=== PATIENT | female | born 1990 | race Caucasian/White ===

== ENCOUNTER → 2024-09-08 08:32 | Outpatient (REF) | payer OTHER, SELFPAY | LOC: PNTC 08:32 | PROVIDERS: ATTENDING PHYSICIAN Obstetrics & Gynecology | DX: Z36.82 Encounter for antenatal screening for nuchal translucency (principal); Z36.0 Encounter for antenatal screening for chromosomal anomalies | CPT/HCPCS: 76801; 76813 ==

== ENCOUNTER → 2024-10-06 08:14 | Outpatient (REF) | payer OTHER, SELFPAY | LOC: PNTC 08:14 | PROVIDERS: ATTENDING PHYSICIAN Student in an Organized Health Care Education/Training Program | DX: O09.812 Supervision of pregnancy resulting from assisted reproductive technology, second trimester (principal); O99.212 Obesity complicating pregnancy, second trimester; O10.012 Pre-existing essential hypertension complicating pregnancy, second trimester; O34.12 Maternal care for benign tumor of corpus uteri, second trimester | CPT/HCPCS: 76805 ==

== ENCOUNTER → 2024-10-31 06:56 | Outpatient (REF) | payer OTHER, SELFPAY | LOC: PNTC 06:56 | PROVIDERS: ATTENDING PHYSICIAN Obstetrics & Gynecology | DX: O09.812 Supervision of pregnancy resulting from assisted reproductive technology, second trimester (principal); O99.212 Obesity complicating pregnancy, second trimester; O10.012 Pre-existing essential hypertension complicating pregnancy, second trimester; O34.12 Maternal care for benign tumor of corpus uteri, second trimester | CPT/HCPCS: 76811; 76817 ==

== ENCOUNTER → 2024-11-24 13:22 | Outpatient (REF) | payer OTHER, SELFPAY | LOC: PNTC 13:22 | PROVIDERS: ATTENDING PHYSICIAN Obstetrics & Gynecology | DX: O99.210 Obesity complicating pregnancy, unspecified trimester (principal) | CPT/HCPCS: 76816 ==

== ENCOUNTER → 2024-12-12 07:22 | Outpatient (REF) | payer OTHER, SELFPAY | LOC: PNTC 07:22 | PROVIDERS: ATTENDING PHYSICIAN Obstetrics & Gynecology | DX: O99.210 Obesity complicating pregnancy, unspecified trimester (principal); O99.340 Other mental disorders complicating pregnancy, unspecified trimester | CPT/HCPCS: 76816 ==

== ENCOUNTER 2025-01-05 14:05 | Observation (INO) | payer OTHER, SELFPAY ==
[2025-01-05 14:25] LABS: Hematocrit 42.2 % (37.0-47.0); Hemoglobin 14.3 g/dL (12.0-16.0); Mean Corp Hgb Conc. 33.9 g/dL (33.0-37.0); Mean Corpuscular Volume 87.6 fL (81.0-99.0); Nucleated Red Blood Cells % 0 %; Platelet Count 388 10^3/uL (130-400); Red Cell Dist. Width 12.8 % (11.5-14.5)
[2025-01-05 14:26] LABS: Urine Character Clear (Clear)
[2025-01-05 14:40] LABS: ALT (SGPT) 15 U/L (0-35); AST (SGOT) 20 U/L (14-36); Albumin 4.3 g/dl (3.5-5.0); Alkaline Phosphatase 78 U/L (38-126); Blood Urea Nitrogen 9 mg/dl (7-17); Calcium 9.6 mg/dl (8.4-10.2); Carbon Dioxide 26 mmol/L (22-30); Chloride 103 mmol/L (98-107); Glucose 95 mg/dl (70-99); Potassium 4.6 mmol/L (3.5-5.1); Sodium 133 mmol/L (135-145); Total Protein 7.4 g/dl (6.3-8.2); eGFR > 60.00
[2025-01-05 14:43] VITALS: BP 135/89; BMI 31.3
== END 2025-01-05 16:21 | disposition home or self-care (01) ==
LOC: PNTC-IN 14:05
PROVIDERS: ADMITTING PHYSICIAN Obstetrics & Gynecology
DX: O10.013 Pre-existing essential hypertension complicating pregnancy, third trimester (principal); Z3A.29 29 weeks gestation of pregnancy
CPT/HCPCS: 36415; 76815; 80053; 81003; 82570; 84156; 85025; G0378

== ENCOUNTER → 2025-01-12 08:34 | Outpatient (REF) | payer OTHER, SELFPAY | LOC: PNTC 08:34 | PROVIDERS: ATTENDING PHYSICIAN Obstetrics & Gynecology | DX: O99.210 Obesity complicating pregnancy, unspecified trimester (principal) | CPT/HCPCS: 59025; 76816 ==

== ENCOUNTER 2025-01-13 16:59 | Observation (INO) | payer OTHER, SELFPAY ==
[2025-01-13 17:24] VITALS: BP 151/98; BMI 31.8
[2025-01-13 17:31] LABS: Hematocrit 36.6 % (37.0-47.0); Hemoglobin 12.8 g/dL (12.0-16.0); Mean Corp Hgb Conc. 35.0 g/dL (33.0-37.0); Mean Corpuscular Volume 85.7 fL (81.0-99.0); Nucleated Red Blood Cells % 0 %; Platelet Count 396 10^3/uL (130-400); Red Cell Dist. Width 12.9 % (11.5-14.5)
[2025-01-13 18:01] LABS: Urine Character Clear (Clear)
[2025-01-13 18:06] LABS: ALT (SGPT) 14 U/L (0-35); AST (SGOT) 22 U/L (14-36); Albumin 3.9 g/dl (3.5-5.0); Alkaline Phosphatase 77 U/L (38-126); Blood Urea Nitrogen 9 mg/dl (7-17); Calcium 10.0 mg/dl (8.4-10.2); Carbon Dioxide 21 mmol/L (22-30); Chloride 105 mmol/L (98-107); Estimated Creatinine Clearance > 125 ml/min; Glucose 87 mg/dl (70-99); Potassium 4.3 mmol/L (3.5-5.1); Sodium 132 mmol/L (135-145); Total Protein 7.2 g/dl (6.3-8.2); eGFR > 60.00
[2025-01-13] MEDS: LR 1000 IV (19:01)
[2025-01-14] MEDS: PROCARDIA XL (EXTENDED RELEASE) 60 MG PO (07:27)
[2025-01-14] MEDS: LOW STRENGTH ASPIRIN 81 MG PO (07:27)
[2025-01-14] MEDS: PRENATAL PLUS 1 TABLET PO (07:27)
[2025-01-14 09:24] LABS: Hematocrit 35.5 % (37.0-47.0); Hemoglobin 12.2 g/dL (12.0-16.0); Mean Corp Hgb Conc. 34.4 g/dL (33.0-37.0); Mean Corpuscular Volume 87.0 fL (81.0-99.0); Platelet Count 334 10^3/uL (130-400); Red Cell Dist. Width 13.1 % (11.5-14.5)
[2025-01-14 09:46] LABS: ALT (SGPT) 13 U/L (0-35); AST (SGOT) 20 U/L (14-36); Albumin 3.5 g/dl (3.5-5.0); Alkaline Phosphatase 61 U/L (38-126); Blood Urea Nitrogen 8 mg/dl (7-17); Calcium 9.3 mg/dl (8.4-10.2); Carbon Dioxide 23 mmol/L (22-30); Chloride 108 mmol/L (98-107); Estimated Creatinine Clearance > 125 ml/min; Glucose 95 mg/dl (70-99); Potassium 4.0 mmol/L (3.5-5.1); Sodium 136 mmol/L (135-145); Total Protein 6.3 g/dl (6.3-8.2); eGFR > 60.00
[2025-01-14] MEDS: TYLENOL 1000 MG PO (15:45)
[2025-01-14 20:04] LABS: 24 Hour Urine Total Volume 6150 ml
[2025-01-14 20:06] LABS: Weight Kg 89.3 KG.
[2025-01-14 20:08] LABS: Height Cm 167.64 CM
[2025-01-14 20:10] LABS: Creat Clear Result 188.0 ml/min (61-166)
== END 2025-01-14 20:50 | disposition home or self-care (01) ==
LOC: LDRP 16:59
PROVIDERS: Student in an Organized Health Care Education/Training Program; ADMITTING PHYSICIAN Obstetrics & Gynecology; REFERRING PHYSICIAN Internal Medicine
DX: O11.3 Pre-existing hypertension with pre-eclampsia, third trimester (principal); O10.913 Unspecified pre-existing hypertension complicating pregnancy, third trimester; Z3A.31 31 weeks gestation of pregnancy
CPT/HCPCS: 80053; 81003; 81050; 82570; 82575; 82731; 84156; 85025; 85027; 86850; 86900; 86901; G0378

== ENCOUNTER → 2025-01-16 14:23 | Outpatient (REF) | payer OTHER, SELFPAY | LOC: PNTC 14:23 | PROVIDERS: ATTENDING PHYSICIAN Obstetrics & Gynecology | DX: O14.90 Unspecified pre-eclampsia, unspecified trimester (principal) | CPT/HCPCS: 59025 ==

== ENCOUNTER → 2025-01-19 07:41 | Outpatient (REF) | payer OTHER, SELFPAY | LOC: PNTC 07:41 | PROVIDERS: ATTENDING PHYSICIAN Obstetrics & Gynecology | DX: O99.213 Obesity complicating pregnancy, third trimester (principal); O09.813 Supervision of pregnancy resulting from assisted reproductive technology, third trimester; O10.013 Pre-existing essential hypertension complicating pregnancy, third trimester; O14.03 Mild to moderate pre-eclampsia, third trimester | CPT/HCPCS: 59025; 76815 ==

== ENCOUNTER → 2025-01-23 07:32 | Outpatient (REF) | payer OTHER, SELFPAY | LOC: PNTC 07:32 | PROVIDERS: ATTENDING PHYSICIAN Student in an Organized Health Care Education/Training Program | DX: O14.00 Mild to moderate pre-eclampsia, unspecified trimester (principal) | CPT/HCPCS: 59025 ==

== ENCOUNTER → 2025-01-26 07:30 | Outpatient (REF) | payer OTHER, SELFPAY | LOC: PNTC 07:30 | PROVIDERS: ATTENDING PHYSICIAN Obstetrics & Gynecology | DX: O99.213 Obesity complicating pregnancy, third trimester (principal); O09.813 Supervision of pregnancy resulting from assisted reproductive technology, third trimester; O10.013 Pre-existing essential hypertension complicating pregnancy, third trimester; O14.03 Mild to moderate pre-eclampsia, third trimester | CPT/HCPCS: 59025; 76815 ==

== ENCOUNTER → 2025-01-30 07:25 | Outpatient (REF) | payer OTHER, SELFPAY | LOC: PNTC 07:25 | PROVIDERS: ATTENDING PHYSICIAN Student in an Organized Health Care Education/Training Program | DX: O14.90 Unspecified pre-eclampsia, unspecified trimester (principal); O36.8390 Maternal care for abnormalities of the fetal heart rate or rhythm, unspecified trimester, not applicable or unspecified | CPT/HCPCS: 59025; 76818 ==

== ENCOUNTER → 2025-02-02 07:30 | Outpatient (REF) | payer OTHER, SELFPAY | LOC: PNTC 07:30 | PROVIDERS: ATTENDING PHYSICIAN Obstetrics & Gynecology | DX: O99.213 Obesity complicating pregnancy, third trimester (principal); O09.813 Supervision of pregnancy resulting from assisted reproductive technology, third trimester; O10.013 Pre-existing essential hypertension complicating pregnancy, third trimester; O14.03 Mild to moderate pre-eclampsia, third trimester | CPT/HCPCS: 59025; 76815 ==

== ENCOUNTER → 2025-02-06 06:57 | Outpatient (REF) | payer OTHER, SELFPAY | LOC: PNTC 06:57 | PROVIDERS: ATTENDING PHYSICIAN Student in an Organized Health Care Education/Training Program | DX: O14.00 Mild to moderate pre-eclampsia, unspecified trimester (principal) | CPT/HCPCS: 59025 ==

== ENCOUNTER → 2025-02-09 08:08 | Outpatient (REF) | payer OTHER, SELFPAY | LOC: PNTC 08:08 | PROVIDERS: ATTENDING PHYSICIAN Obstetrics & Gynecology | DX: O99.213 Obesity complicating pregnancy, third trimester (principal); O09.813 Supervision of pregnancy resulting from assisted reproductive technology, third trimester; O10.013 Pre-existing essential hypertension complicating pregnancy, third trimester; O14.03 Mild to moderate pre-eclampsia, third trimester | CPT/HCPCS: 59025; 76816 ==

== ENCOUNTER → 2025-02-13 06:55 | Outpatient (REF) | payer OTHER, SELFPAY | LOC: PNTC 06:55 | PROVIDERS: ATTENDING PHYSICIAN Student in an Organized Health Care Education/Training Program | DX: O14.90 Unspecified pre-eclampsia, unspecified trimester (principal) | CPT/HCPCS: 59025 ==

== ENCOUNTER 2025-02-14 19:58 | Observation (INO) | payer OTHER, SELFPAY ==
[2025-02-14 20:02] VITALS: BMI 32.8
[2025-02-14 20:36] VITALS: BP 148/109
[2025-02-14 20:43] LABS: Hematocrit 37.2 % (37.0-47.0); Hemoglobin 12.8 g/dL (12.0-16.0); Mean Corp Hgb Conc. 34.4 g/dL (33.0-37.0); Mean Corpuscular Volume 86.3 fL (81.0-99.0); Platelet Count 345 10^3/uL (130-400); Red Cell Dist. Width 13.4 % (11.5-14.5)
[2025-02-14 21:02] LABS: AST (SGOT) 22 U/L (14-36); Albumin 3.6 g/dl (3.5-5.0); Alkaline Phosphatase 91 U/L (38-126); Blood Urea Nitrogen 8 mg/dl (7-17); Calcium 9.6 mg/dl (8.4-10.2); Carbon Dioxide 20 mmol/L (22-30); Chloride 105 mmol/L (98-107); Estimated Creatinine Clearance > 125 ml/min; Glucose 129 mg/dl (70-99); Potassium 4.3 mmol/L (3.5-5.1); Sodium 133 mmol/L (135-145); Total Protein 6.7 g/dl (6.3-8.2); eGFR > 60.00
[2025-02-14 21:16] LABS: ALT (SGPT) < 20 U/L (0-35)
[2025-02-14] MEDS: CELESTONE SOLUSPAN 2 MG IM (21:35)
[2025-02-14] MEDS: ATIVAN 0.5 MG PO (22:09)
[2025-02-14] MEDS: BENADRYL 50 MG PO (22:09)
[2025-02-15] MEDS: PRENATAL PLUS 1 TABLET PO (07:58)
[2025-02-15] MEDS: PROCARDIA XL (EXTENDED RELEASE) 60 MG PO (07:58)
== END 2025-02-15 09:37 | disposition home or self-care (01) ==
LOC: LDRP 19:58
PROVIDERS: ADMITTING PHYSICIAN Obstetrics & Gynecology
DX: O11.3 Pre-existing hypertension with pre-eclampsia, third trimester (principal); O10.913 Unspecified pre-existing hypertension complicating pregnancy, third trimester; O09.813 Supervision of pregnancy resulting from assisted reproductive technology, third trimester; Z3A.35 35 weeks gestation of pregnancy; R51.9 Headache, unspecified; O99.343 Other mental disorders complicating pregnancy, third trimester; F41.9 Anxiety disorder, unspecified
CPT/HCPCS: 80053; 85027; 86850; 86900; 86901; 87070; G0378

== ENCOUNTER 2025-02-15 20:26 | Observation (INO) | payer OTHER, SELFPAY ==
[2025-02-15 21:05] VITALS: BP 140/94
[2025-02-15] MEDS: CELESTONE SOLUSPAN 2 MG IM (22:46)
== END 2025-02-15 22:50 | disposition home or self-care (01) ==
LOC: LDRP 20:26
PROVIDERS: ADMITTING PHYSICIAN Obstetrics & Gynecology
DX: O11.3 Pre-existing hypertension with pre-eclampsia, third trimester (principal); O10.913 Unspecified pre-existing hypertension complicating pregnancy, third trimester; O26.893 Other specified pregnancy related conditions, third trimester; Z3A.35 35 weeks gestation of pregnancy; O09.813 Supervision of pregnancy resulting from assisted reproductive technology, third trimester
CPT/HCPCS: 59025; G0378

== ENCOUNTER 2025-02-16 10:31 | Inpatient (IN) | payer OTHER, SELFPAY ==
[2025-02-16 10:38] VITALS: BMI 32.8
[2025-02-16 10:40] VITALS: BP 147/100
[2025-02-16 11:16] VITALS: BP 150/97; BMI 32.8
[2025-02-16 12:27] LABS: Hematocrit 37.2 % (37.0-47.0); Hemoglobin 12.6 g/dL (12.0-16.0); Mean Corp Hgb Conc. 33.9 g/dL (33.0-37.0); Mean Corpuscular Volume 87.7 fL (81.0-99.0); Nucleated Red Blood Cells % 0 %; Platelet Count 401 10^3/uL (130-400); Red Cell Dist. Width 13.6 % (11.5-14.5)
[2025-02-16 12:36] LABS: Urine Character Clear (Clear)
[2025-02-16 12:50] LABS: ALT (SGPT) 16 U/L (0-35); AST (SGOT) 21 U/L (14-36); Albumin 3.5 g/dl (3.5-5.0); Alkaline Phosphatase 91 U/L (38-126); Blood Urea Nitrogen 9 mg/dl (7-17); Calcium 9.5 mg/dl (8.4-10.2); Carbon Dioxide 19 mmol/L (22-30); Chloride 109 mmol/L (98-107); Estimated Creatinine Clearance > 125 ml/min; Glucose 133 mg/dl (70-99); Potassium 4.3 mmol/L (3.5-5.1); Sodium 136 mmol/L (135-145); Total Protein 6.5 g/dl (6.3-8.2); Uric Acid 6.2 mg/dl (2.5-6.2); eGFR > 60.00
[2025-02-16] MEDS: LR 1000 IV (14:48)
[2025-02-16] MEDS: MAGNESIUM SULFATE 100 IV (14:54)
[2025-02-16] MEDS: MAGNESIUM SULFATE 40 GRAM 1000 IV (15:19)
[2025-02-16] MEDS: CYTOTEC 25 MICROGRAM VAG (16:18)
[2025-02-16] MEDS: TRANDATE 200 MG PO (17:02)
[2025-02-16] MEDS: CYTOTEC 50 MICROGRAM PO (20:38)
[2025-02-16 21:22] LABS: Hematocrit 37.1 % (37.0-47.0); Hemoglobin 12.6 g/dL (12.0-16.0); Mean Corp Hgb Conc. 34.0 g/dL (33.0-37.0); Mean Corpuscular Volume 86.9 fL (81.0-99.0); Platelet Count 333 10^3/uL (130-400); Red Cell Dist. Width 13.8 % (11.5-14.5)
[2025-02-16 21:41] LABS: ALT (SGPT) 16 U/L (0-35); AST (SGOT) 26 U/L (14-36); Albumin 3.6 g/dl (3.5-5.0); Alkaline Phosphatase 108 U/L (38-126); Blood Urea Nitrogen 7 mg/dl (7-17); Calcium 7.8 mg/dl (8.4-10.2); Carbon Dioxide 20 mmol/L (22-30); Chloride 108 mmol/L (98-107); Estimated Creatinine Clearance > 125 ml/min; Glucose 103 mg/dl (70-99); Magnesium 4.7 mg/dl (1.6-2.3); Potassium 4.3 mmol/L (3.5-5.1); Sodium 133 mmol/L (135-145); Total Protein 6.5 g/dl (6.3-8.2); eGFR > 60.00
[2025-02-17] MEDS: CYTOTEC PO ×4 (00:55→14:40)
[2025-02-17] MEDS: CYTOTEC 50 MICROGRAM PO (00:55)
[2025-02-17] MEDS: LR 1000 IV ×2 (01:44→14:19)
[2025-02-17 05:33] LABS: Hematocrit 36.8 % (37.0-47.0); Hemoglobin 12.6 g/dL (12.0-16.0); Mean Corp Hgb Conc. 34.2 g/dL (33.0-37.0); Mean Corpuscular Volume 87.6 fL (81.0-99.0); Platelet Count 320 10^3/uL (130-400); Red Cell Dist. Width 13.6 % (11.5-14.5)
[2025-02-17 06:06] LABS: ALT (SGPT) 16 U/L (0-35); AST (SGOT) 22 U/L (14-36); Albumin 3.4 g/dl (3.5-5.0); Alkaline Phosphatase 98 U/L (38-126); Blood Urea Nitrogen 8 mg/dl (7-17); Calcium 7.4 mg/dl (8.4-10.2); Carbon Dioxide 21 mmol/L (22-30); Chloride 109 mmol/L (98-107); Estimated Creatinine Clearance > 125 ml/min; Glucose 92 mg/dl (70-99); Potassium 4.1 mmol/L (3.5-5.1); Sodium 137 mmol/L (135-145); Total Protein 6.3 g/dl (6.3-8.2); eGFR > 60.00
[2025-02-17] MEDS: TRANDATE 200 MG PO ×2 (07:36→19:54)
[2025-02-17] MEDS: PITOCIN 30 UNITS/NSS 500 ML IV (07:37)
[2025-02-17] MEDS: MAGNESIUM SULFATE 40 GRAM 1000 IV (09:20)
[2025-02-17] MEDS: STADOL 1 MG IV (10:14)
[2025-02-17] MEDS: PHENERGAN 50.5 MG IV (10:26)
[2025-02-17] MEDS: BRETHINE 250 MCG SC (10:44)
[2025-02-17] MEDS: PENICILLIN 110 UNITS IV (15:19)
[2025-02-17] MEDS: SUBLIMAZE 100 MCG EPIDURAL (17:19)
[2025-02-17] MEDS: FENTANYL/BUPIVACAINE 100 EPIDURAL (17:20)
[2025-02-17] MEDS: PENICILLIN 55 UNITS IV ×2 (18:31→22:50)
[2025-02-18] MEDS: FENTANYL/BUPIVACAINE 100 EPIDURAL ×2 (00:48→07:17)
[2025-02-18] MEDS: LR 1000 IV ×3 (02:53→23:11)
[2025-02-18] MEDS: MAGNESIUM SULFATE 40 GRAM 1000 IV ×2 (03:19→08:11)
[2025-02-18] MEDS: PENICILLIN 55 UNITS IV ×2 (03:19→08:00)
[2025-02-18] MEDS: BENADRYL 12.5 MG IV (05:26)
[2025-02-18] MEDS: TRANDATE 200 MG PO ×2 (08:13→20:20)
[2025-02-18 08:34] LABS: Hematocrit 35.6 % (37.0-47.0); Hemoglobin 12.4 g/dL (12.0-16.0); Mean Corp Hgb Conc. 34.8 g/dL (33.0-37.0); Mean Corpuscular Volume 85.6 fL (81.0-99.0); Platelet Count 292 10^3/uL (130-400); Red Cell Dist. Width 14.0 % (11.5-14.5)
[2025-02-18 08:54] LABS: ALT (SGPT) 14 U/L (0-35); AST (SGOT) 22 U/L (14-36); Albumin 3.1 g/dl (3.5-5.0); Alkaline Phosphatase 106 U/L (38-126); Blood Urea Nitrogen 11 mg/dl (7-17); Calcium 6.6 mg/dl (8.4-10.2); Carbon Dioxide 22 mmol/L (22-30); Chloride 107 mmol/L (98-107); Estimated Creatinine Clearance > 125 ml/min; Glucose 95 mg/dl (70-99); Magnesium 6.2 mg/dl (1.6-2.3); Potassium 4.2 mmol/L (3.5-5.1); Sodium 133 mmol/L (135-145); Total Protein 5.8 g/dl (6.3-8.2); eGFR > 60.00
[2025-02-18] MEDS: BICITRA 30 ML PO (10:00)
[2025-02-18] MEDS: TYLENOL 975 MG PO (10:00)
[2025-02-18] MEDS: ANCEF 10 IV (10:23)
[2025-02-18] MEDS: ZITHROMAX INFUSION 250 IV (10:31)
[2025-02-18 11:06] LABS: Cord ABG B.E. - POC -2.5 mmol/L; Cord ABG HCO3 - POC 25 mmol/L; Cord ABG O2 Sat % - POC 30.0 %; Cord ABG pCO2 - POC 51 mmHg; Cord ABG pH - POC 7.29; Cord ABG pO2 - POC 22 mmHg
[2025-02-18 11:11] LABS: Cord VBG B.E. - POC -0.7 mmol/L; Cord VBG HCO3 - POC 26 mmol/L; Cord VBG O2 Sat % - POC 31.2 %; Cord VBG pCO2 - POC 49 mmHg; Cord VBG pH - POC 7.33; Cord VBG pO2 - POC 21 mmHg
[2025-02-18] MEDS: PENICILLIN IV (11:34)
[2025-02-18] MEDS: ROXICODONE 5 MG PO ×2 (18:19→23:26)
[2025-02-18] MEDS: COLACE 100 MG PO (20:20)
[2025-02-19 05:54] LABS: Hematocrit 30.1 % (37.0-47.0); Hemoglobin 10.2 g/dL (12.0-16.0); Mean Corp Hgb Conc. 33.9 g/dL (33.0-37.0); Mean Corpuscular Volume 89.1 fL (81.0-99.0); Platelet Count 260 10^3/uL (130-400); Red Cell Dist. Width 13.9 % (11.5-14.5)
[2025-02-19 05:58] LABS: ALT (SGPT) 11 U/L (0-35); AST (SGOT) 24 U/L (14-36); Albumin 2.5 g/dl (3.5-5.0); Alkaline Phosphatase 70 U/L (38-126); Blood Urea Nitrogen 13 mg/dl (7-17); Calcium 6.3 mg/dl (8.4-10.2); Carbon Dioxide 26 mmol/L (22-30); Chloride 106 mmol/L (98-107); Estimated Creatinine Clearance 113 ml/min; Glucose 79 mg/dl (70-99); Potassium 4.3 mmol/L (3.5-5.1); Sodium 133 mmol/L (135-145); Total Protein 4.9 g/dl (6.3-8.2); eGFR > 60.00
[2025-02-19] MEDS: MAGNESIUM SULFATE 40 GRAM 1000 IV (07:29)
[2025-02-19] MEDS: COLACE 100 MG PO ×2 (08:15→20:00)
[2025-02-19] MEDS: TRANDATE 200 MG PO ×2 (08:15→19:59)
[2025-02-19] MEDS: PRENATAL PLUS 1 TABLET PO (08:15)
[2025-02-19] MEDS: TYLENOL 650 MG PO ×3 (08:16→19:59)
[2025-02-19] MEDS: MOTRIN 600 MG PO ×3 (08:16→19:59)
--- NOTE | 2025-02-19 10:28 | W.PN.ANS.POP ---
Anesthesia Post Operative
- Anesthesia Post Op Note
Vital Signs Stable-See Nursing Note: Yes
Airway Patent: Yes
Adequate Pain Control: Yes
Change in Mental Status: No
Current Postoperative Nausea & Vomiting: No
Anesthesia Complications: No
General Anesthetic Recall: No
Unplanned Admission: No
Post Op Hydration Adequate: Yes
[2025-02-20] MEDS: MOTRIN 600 MG PO ×3 (04:18→19:14)
[2025-02-20] MEDS: TYLENOL 650 MG PO ×3 (04:18→19:15)
[2025-02-20] MEDS: PRENATAL PLUS 1 TABLET PO (07:51)
[2025-02-20] MEDS: TRANDATE 200 MG PO ×2 (07:52→19:15)
[2025-02-20] MEDS: COLACE 100 MG PO ×2 (07:52→19:14)
[2025-02-21] MEDS: MOTRIN 600 MG PO (06:10)
[2025-02-21] MEDS: TYLENOL 650 MG PO (06:11)
[2025-02-21] MEDS: TRANDATE 200 MG PO (08:04)
[2025-02-21] MEDS: COLACE 100 MG PO (08:05)
[2025-02-21] MEDS: PRENATAL PLUS 1 TABLET PO (08:05)
--- NOTE | 2025-02-21 08:55 | W.DS.TRANS ---
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
-
Discharge Instructions:
Discharge Diagnosis/Procedures primary cs, pec with sf
Instructions:
Stand-Alone Forms: LDRP Delivery
LDRP Hypertensive Disorders
Changes to Home Medications: No
Discharge Medications:
DC Medications w/original date entered in [employer]
1 tab PO DAILY Supplement 01/05/25
Vitamin D (with calcium) 1 tab PO DAILY Supplement 02/14/25
magnesium 200 mg tablet 200 mg PO DAILY Supplement 02/16/25
ibuprofen 600 mg tablet 600 mg PO Q6HPRN PRN cramps #90 tabs 02/21/25
labetalol 200 mg tablet 200 mg PO BID #100 tabs 02/21/25
Home Medication Changes
Pending Results: No
Total time spent discharging patient (in min): 15
--- NOTE | 2025-02-21 09:23 | CM ---
met with Lise and her at bedside this AM. Lise and her were preparing to go home with their son. Post- resources provided. Lise has a provider with whom she has been working with in the community and will
continue with that provider.
Lise and her advised that they have an appointment with [facility] pediatrics for tomorrow.
Plan: Discharge to home today with follow up with individualized education plan aide tomorrow.
[2025-02-21 13:10] LABS: Syphilis/T. pallidum Ab Reflex Negative (Negative)
== END 2025-02-21 12:13 | disposition home or self-care (01) | DRG 788 ==
LOC: LDRP 10:31
PROVIDERS: Obstetrics & Gynecology; ADMITTING PHYSICIAN Obstetrics & Gynecology
PROC: 3E0P7VZ Introduction of Hormone into Female Reproductive, Via Natural or Artificial Opening (ICD-10-PCS; 2025-02-16)
PROC: 0U7C7DJ Dilation of Cervix with Intraluminal Device, Temporary, Via Natural or Artificial Opening (ICD-10-PCS; 2025-02-17)
PROC: 10H07YZ Insertion of Other Device into Products of Conception, Via Natural or Artificial Opening (ICD-10-PCS; 2025-02-18)
PROC: 10D00Z1 Extraction of Products of Conception, Low, Open Approach (ICD-10-PCS; 2025-02-18)
PROC: 3E0E77Z Introduction of Electrolytic and Water Balance Substance into Products of Conception, Via Natural or Artificial Opening (ICD-10-PCS; 2025-02-18)
DX: O14.14 Severe pre-eclampsia complicating childbirth (principal); Z3A.35 35 weeks gestation of pregnancy; Z37.0 Single live birth; D25.9 Leiomyoma of uterus, unspecified; O34.13 Maternal care for benign tumor of corpus uteri, third trimester; O61.9 Failed induction of labor, unspecified; O76 Abnormality in fetal heart rate and rhythm complicating labor and delivery; F41.9 Anxiety disorder, unspecified; O99.344 Other mental disorders complicating childbirth; Z98.82 Breast implant status
CPT/HCPCS: 80053; 81003; 81015; 82570; 83735; 84156; 84550; 85025; 85027; 86780; 86850; 86900; 86901; 86920; 88307